=== PATIENT | female | born 1955 | race Caucasian/White ===

== ENCOUNTER 2016-06-20 21:25 | Inpatient (IN) | payer BC ==
[~2016-06-20] VITALS: Ht 162.6 cm; Wt 80.5 kg
[2016-06-20 22:14] LABS: BASOPHIL % 0.5 % (0-2); PLATELET COUNT 236 x10^3mcL (130-400); RED CELL DISTRIBUTION WIDTH 14.5 % (11.5-14.5)
[2016-06-20 22:20] LABS: CALCIUM 8.6 mg/dL (8.5-10.1); CARBON DIOXIDE 25.7 mmol/L (21-32); CHLORIDE SERUM 107 mmol/L (98-107); CREATININE SERUM 0.8 mg/dL (0.6-1.0); GFR1 > 60 mL/min; GLUCOSE SERUM 111 mg/dL (74-106); POTASSIUM SERUM 3.9 mmol/L (3.5-5.1); SODIUM SERUM 142 mmol/L (136-145)
[2016-06-20 22:24] LABS: ALBUMIN 3.4 g/dL (3.4-5.0); ALKALINE PHOSPHATASE 87 U/L (46-116); ALT/SGPT 17 U/L (14-59); AST/SGOT 14 U/L (15-37); BILIRUBIN TOTAL 0.2 mg/dL (0.20-1.00); TOTAL PROTEIN, SERUM 7.1 g/dL (6.4-8.2)
[2016-06-20 22:31] LABS: CK-MB < 0.5 ng/mL (0-3.6); CREATINE KINASE 83 U/L (26-192)
[2016-06-21 00:21] VITALS: BP 116/59
[2016-06-21 01:00] LABS: T3 TOTAL 1.21 ng/mL
[2016-06-21 01:15] LABS: FREE T4 0.92 ng/dL (0.76-1.46); FREE THYROXINE INDEX 2.8 ug/dL (1.4-4.5); T4(THYROXINE) 8.4 ug/dL (4.7-13.3)
[2016-06-21 06:01] VITALS: BP 93/51
[2016-06-21 06:23] LABS: BASOPHIL % 0.4 % (0-2); PLATELET COUNT 212 x10^3mcL (130-400); RED CELL DISTRIBUTION WIDTH 14.2 % (11.5-14.5)
[2016-06-21 06:24] LABS: CALCIUM 7.9 mg/dL (8.5-10.1); CARBON DIOXIDE 24.2 mmol/L (21-32); CHLORIDE SERUM 107 mmol/L (98-107); CREATININE SERUM 0.6 mg/dL (0.6-1.0); GFR1 > 60 mL/min; GLUCOSE SERUM 107 mg/dL (74-106); MAGNESIUM 1.9 mg/dL (1.8-2.4); POTASSIUM SERUM 4.1 mmol/L (3.5-5.1); SODIUM SERUM 142 mmol/L (136-145)
[2016-06-21 10:34] VITALS: BP 112/61
[2016-06-21 14:00] VITALS: BP 100/54
[2016-06-21 16:50] LABS: microscopic required? NO
[2016-06-21 17:00] LABS: UA SPECIFIC GRAVITY 1.025 (1.005-1.035); urine erythrocyte NEGATIVE (NEGATIVE)
[2016-06-21 17:12] LABS: AMPHETAMINE QUAL UR NONE DETECTED (NEG <=1000)
[2016-06-21 18:23] VITALS: BP 122/47
[2016-06-21 20:58] VITALS: BP 117/48
[2016-06-22 06:13] VITALS: BP 95/53
[2016-06-22 06:19] LABS: BASOPHIL % 0.4 % (0-2); PLATELET COUNT 199 x10^3mcL (130-400)
[2016-06-22 06:29] LABS: CARBON DIOXIDE 25.4 mmol/L (21-32); CHLORIDE SERUM 109 mmol/L (98-107); CREATININE SERUM 0.6 mg/dL (0.6-1.0); GFR1 > 60 mL/min; GLUCOSE SERUM 95 mg/dL (74-106); SODIUM SERUM 140 mmol/L (136-145)
[2016-06-22 06:31] LABS: ALBUMIN 2.8 g/dL (3.4-5.0)
[2016-06-22 06:33] LABS: RED CELL DISTRIBUTION WIDTH 14.7 % (11.5-14.5)
[2016-06-22 10:03] VITALS: BP 102/60
[2016-06-22 12:47] VITALS: BP 100/57
[2016-06-22] MEDS ORDERED: TOR10 PO (17:37)
[2016-06-22 17:43] VITALS: BP 100/57
== END 2016-06-22 18:00 | disposition home or self-care (01) | DRG 205 ==
LOC: ED 21:25 → DU 23:19
PROVIDERS: Emergency Medicine; Family Medicine; ADMIT Family Medicine
DX: M94.0 Chondrocostal junction syndrome [Tietze] (principal); N17.0 Acute kidney failure with tubular necrosis; E43 Unspecified severe protein-calorie malnutrition; E78.5 Hyperlipidemia, unspecified; E87.8 Other disorders of electrolyte and fluid balance, not elsewhere classified; D64.9 Anemia, unspecified; E02 Subclinical iodine-deficiency hypothyroidism; E83.51 Hypocalcemia; Z82.2 Family history of deafness and hearing loss
CPT/HCPCS: 80307; 83880; 84439; 85378; A9500; G0480; J1885; J2270; J2405; J2785; J7030; Q0092; Q0162